=== PATIENT | female | born 1985 | race Caucasian/White ===

== ENCOUNTER 2019-06-10 05:00 | Emergency (ER) | payer SELFPAY ==
[~2019-06-10] VITALS: Ht 170.1 cm; Wt 63.0 kg
[2019-06-10] MEDS ORDERED: methylPREDNISolone 125 MG (Solu-MEDROL) VIAL IV STA (05:07)
[2019-06-10] MEDS ORDERED: RT-ALBUTEROL/IPRATROPIUM 3 ML (DUONEB) VIAL INH ONE ×2 (05:15→05:30)
--- NOTE | 2019-06-10 05:15 | ED Respiratory ---
General Stated Complaint: ASTHMA ATTACK Source: patient Exam Limitations: no limitations History of Present Illness Date Seen by Provider: Jun 10, 2019 Time Seen by Provider: 04:51 Initial Comments Patient presents ER by private conveyance from home with chief complaint that for the past 1 day she's been having severe worsening shortness of breath you are not rest. She's had an occasional dry cough. She denies flank production or fever. She's had no sick contacts. She recently moved about a month ago from [place], [place]. She's been having problems with her allergies and has a history of asthma for which she is on Singulair, a daily inhaled steroid and an MDI albuterol as well as nebulized albuterol. She has been using her nebulized albuterol for the past day about every 1-2 hours with decreasing improvement in her symptoms. She has an appointment to establish care at [facility] but has been bumped several times because of the recent illness and the community. She has ran out of her albuterol MDI and is about out of her nebulizer. She is out of her Singulair as well as her daily controller medication. She is also out of her lisinopril. Allergies and Home Medications Allergies Coded Allergies: No Known Drug Allergies (Unverified , 06/10/19) Patient Home Medication List Home Medication List Reviewed: Yes Review of Systems Review of Systems Constitutional: No chills, No diaphoresis, No fever, No malaise EENTM: No ear discharge, No ear pain Respiratory: cough; No phlegm; short of breath, wheezing Cardiovascular: No chest pain, No edema, No palpitations Gastrointestinal: No abdominal pain, No constipation, No diarrhea, No jaundice Genitourinary: No decreased output, No discharge Musculoskeletal: No back pain, No joint pain All Other Systems Reviewed Negative Unless Noted: Yes Past Mkqcods-Szpzvl-Pagiju Hx Patient Social History Alcohol Use: Denies Use Recreational Drug Use: No Smoking Status: Never a Smoker Physical Exam Vital Signs - First Documented 06/10/19 06/10/19 05:00 05:16 Temp 36.7 Pulse 98 Resp 20 B/P (MAP) 110/88 (95) Pulse Ox 98 O2 Delivery Room Air Capillary Refill : Height: '" Weight: lbs. oz. kg; BMI Method: General Appearance: WD/WN, moderate distress Eyes: Bilateral Eye Normal Inspection, Bilateral Eye PERRL, Bilateral Eye EOMI HEENT: PERRL/EOMI, normal ENT inspection, pharynx normal Neck: full range of motion, normal inspection Respiratory: respiratory distress (nqvc-xq-falpmopq, tachycardia or 105 and tachypneic 25-30), decreased breath sounds, accessory muscle use (mild), wheezing Cardiovascular: normal peripheral pulses, regular rate, rhythm Gastrointestinal: normal bowel sounds, non tender Neurologic/Psychiatric: alert, normal mood/affect, oriented x 3 Skin: normal color, warm/dry Progress/Results/Core Measures Suspected Sepsis SIRS Temperature: Pulse: Respiratory Rate: Laboratory Tests 06/10/19 05:13: White Blood Count 7.3 Blood Pressure / Mean: Laboratory Tests 06/10/19 05:13: Creatinine 0.90, Platelet Count 265, Total Bilirubin 0.4 Results/Orders Lab Results Laboratory Tests Test 06/10/19 05:13 06/10/19 05:20 Range/Units White Blood Count 7.3 4.3-11.0 10^3/uL Red Blood Count 4.78 4.35-5.85 10^6/uL Hemoglobin 14.2 11.5-16.0 G/DL Hematocrit 43 35-52 % Mean Corpuscular Volume 89 80-99 FL Mean Corpuscular Hemoglobin 30 25-34 PG Mean Corpuscular Hemoglobin Concent 33 32-36 G/DL Red Cell Distribution Width 12.8 10.0-14.5 % Platelet Count 265 130-400 10^3/uL Mean Platelet Volume 9.2 7.4-10.4 FL Neutrophils (%) (Auto) 55 42-75 % Lymphocytes (%) (Auto) 33 12-44 % Monocytes (%) (Auto) 7 0-12 % Eosinophils (%) (Auto) 5 0-10 % Basophils (%) (Auto) 0 0-10 % Neutrophils # (Auto) 4.0 1.8-7.8 X 10^3 Lymphocytes # (Auto) 2.4 1.0-4.0 X 10^3 Monocytes # (Auto) 0.5 0.0-1.0 X 10^3 Eosinophils # (Auto) 0.4 H 0.0-0.3 10^3/uL Basophils # (Auto) 0.0 0.0-0.1 10^3/uL Sodium Level 140 135-145 MMOL/L Potassium Level 3.9 3.6-5.0 MMOL/L Chloride Level 111 H 98-107 MMOL/L Carbon Dioxide Level 18 L 21-32 MMOL/L Anion Gap 11 5-14 MMOL/L Blood Urea Nitrogen 12 7-18 MG/DL Creatinine 0.90 0.60-1.30 MG/DL Estimat Glomerular Filtration Rate > 60 BUN/Creatinine Ratio 13 Glucose Level 107 H 70-105 MG/DL Calcium Level 9.1 8.5-10.1 MG/DL Corrected Calcium 8.5-10.1 MG/DL Total Bilirubin 0.4 0.1-1.0 MG/DL Aspartate Amino Transf (AST/SGOT) 15 5-34 U/L Alanine Aminotransferase (ALT/SGPT) 17 0-55 U/L Alkaline Phosphatase 37 L 40-136 U/L C-Reactive Protein High Sensitivity 0.02 0.00-0.50 MG/DL Total Protein 7.3 6.4-8.2 GM/DL Albumin 4.6 H 3.2-4.5 GM/DL Blood Gas Puncture Site RR Blood Gas Patient Temperature 36.8 Arterial Blood pH 7.37 7.37-7.43 Arterial Blood Partial Pressure CO2 36 35-45 MMHG Arterial Blood Partial Pressure O2 73 L 79-93 MMHG Arterial Blood HCO3 20 L 23-27 MMOL/L Arterial Blood Total CO2 21.3 21.0-31.0 MMOL/L Arterial Blood Oxygen Saturation 95 94-100 % Arterial Blood Base Excess -4.3 L -2.5-2.5 MMOL/L Aashish Test YES-POS Blood Gas Ventilator Setting NO Blood Gas Inspired Oxygen RA My Orders Orders - BEHZAD SORIANO Albuterol/Ipra Inhalation Soln (Duoneb I (06/10/19 05:15) Methylprednisolone Sod Succ (Solu-Medrol (06/10/19 05:07) Chest 1 View, Ap/Pa Only (06/10/19 05:07) Svn Small Volume Nebulizer (06/10/19 05:07) Cbc With Automated Diff (06/10/19 05:07) Comprehensive Metabolic Panel (06/10/19 05:07) Hs C Reactive Protein (06/10/19 05:07) Arterial Blood Gas (06/10/19 05:07) Albuterol Pre-Mix Nebs (Rt) (Proventil (06/10/19 05:22) Albuterol/Ipra Inhalation Soln (Duoneb I (06/10/19 05:30) Albuterol Pre-Mix Nebs (Rt) (Proventil (06/10/19 05:19) Ed Iv/Invasive Line Start (06/10/19 05:46) Medications Given in ED Current Medications Medications Dose Ordered Sig/Tariq Route Start Time Stop Time Status Last Admin Dose Admin Albuterol/ Ipratropium 3 ml ONCE ONCE INH 06/10/19 05:15 06/10/19 05:16 DC 06/10/19 05:19 3 ML Albuterol/ Ipratropium 3 ml ONCE ONCE INH 06/10/19 05:30 06/10/19 05:31 DC 06/10/19 05:26 3 ML Vital Signs/I&O 06/10/19 06/10/19 06/10/19 05:00 05:16 05:29 Temp 36.7 Pulse 98 Resp 20 B/P (MAP) 110/88 (95) Pulse Ox 98 96 99 O2 Delivery Room Air Capillary Refill : Progress Note #1: Time: 05:13 Progress Note Patient's previously controlled asthma is no longer control now that she is off of her inhaled corticosteroids, Singulair. We will start with a DuoNeb and do some basic labs and chest x-ray looking for signs of pneumonia. She doesn't have any fever. If she doesn't improve then try an hour-long. We'll give her Solu- Medrol. Her tachycardia may be partially explained by the albuterol that she took within 30 minutes prior to arrival. ABG Progress Note #2: Time: 06:01 Progress Note Patient had significant improvement although still having some wheezing and tightness respiration so we will give her 7.5 mg albuterol and a DuoNeb in addition to the Solu-Medrol. Progress Note #3: Time: 06:11 Progress Note On reexamination the patient's wheezing is gone her breathing is better and she notes objective improvement of symptoms. Vital signs are still normal with a heart rate around the 100 likely due to the albuterol. Diagnostic Imaging Diagonstic Imaging: Xray Plain Films/CT/US/NM/MRI: chest Comments No acute cardiopulmonary processes noted on one view chest x-ray. Reviewed: Reviewed by Me Departure Impression Primary Impression: Asthma exacerbation Qualified Codes: J45.901 - Unspecified asthma with (acute) exacerbation Disposition: 01 HOME, SELF-CARE Condition: Improved Departure-Patient Inst. Decision time for Depature: 06:10 Referrals: UNKNOWN (PCP/Family) Primary Care Physician Patient Instructions: Asthma, Adult (DC) Add. Discharge Instructions: Continue to work on establishing care with your primary care doctor. 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 Return to the ER for having difficulty breathing. Prednisone 3 tablets daily for 3 days. Prednisone 2 tablets daily for 3 days. Prednisone one tablet daily for 3 days. Scripts Budesonide/Formoterol Fumarate (Symbicort 160-4.5 Mcg Inhaler) 10.2 Gm Hfa.aer.ad 2 PUFF IH BID for 30 Days, #1 INHALER 0 Refills Prov: BEHZAD SORIANO 06/10/19 Lisinopril (Lisinopril) 5 Mg Tablet 5 MG PO DAILY for 14 Days, #14 TAB 0 Refills Prov: BEHZAD SORIANO 06/10/19 Albuterol Sulfate (Albuterol Sulfate) 2.5 Mg/3 Ml Vial.neb 2.5 MG INH Q4H PRN for WHEEZING, #50 EA 1 Refill Prov: BEHZAD SORIANO 06/10/19 Albuterol Sulfate (PROAIR HFA) 1 Puff Puff 2 PUFF IH Q4H PRN for WHEEZING, #1 EA 0 Refills 1 PUFF = 90 MCG Prov: BEHZAD SORIANO 06/10/19 Prednisone (Prednisone) 20 Mg Tab 60 MG PO DAILY for 9 Days, #18 TAB 0 Refills Take 3 tabs(60mg)daily, decrease by 1/2 tab(10mg)daily. Prov: BEHZAD SORIANO 06/10/19 BEHZAD SORIANO Jun 10, 2019 05:14
[2019-06-10 05:18] LABS: BASOPHILS % (AUTO) 0 % (0-10); EOSINOPHILS # (AUTO) 0.4 10^3/uL (0.0-0.3); EOSINOPHILS % (AUTO) 5 % (0-10); HEMATOCRIT 43 % (35-52); HEMOGLOBIN 14.2 G/DL (11.5-16.0); LYMPHOCYTES # (AUTO) 2.4 X 10^3 (1.0-4.0); LYMPHOCYTES % (AUTO) 33 % (12-44); MEAN CORPUSCULAR HEMOGLOBIN 30 PG (25-34); MEAN CORPUSCULAR HGB CONC 33 G/DL (32-36); MEAN CORPUSCULAR VOLUME 89 FL (80-99); MEAN PLATELET VOLUME 9.2 FL (7.4-10.4); MONOCYTES # (AUTO) 0.5 X 10^3 (0.0-1.0); MONOCYTES % (AUTO) 7 % (0-12); NEUTROPHILS % (AUTO) 55 % (42-75); PLATELET COUNT 265 10^3/uL (130-400); RED CELL DISTRIBUTION WIDTH 12.8 % (10.0-14.5); WHITE BLOOD COUNT 7.3 10^3/uL (4.3-11.0)
[2019-06-10] MEDS ORDERED: RT-ALBUTEROL SULF 2.5 MG/3 ML PRE-MIX VIAL ONE (05:19)
--- NOTE | 2019-06-10 05:20 | NUR ---
ABG DONE BY RESPIRATORY THERAPY STAFF
[2019-06-10] MEDS ORDERED: RT-ALBUTEROL SULF 2.5 MG/3 ML PRE-MIX VIAL INH STA (05:22)
[2019-06-10 05:30] LABS: ABG BASE EXCESS -4.3 MMOL/L (-2.5-2.5); ABG OXYGEN SATURATION 95 % (94-100); ABG PCO2 36 MMHG (35-45); ABG PH 7.37 (7.37-7.43); ABG PO2 73 MMHG (79-93); ABG TCO2 21.3 MMOL/L (21.0-31.0); ALLENS TEST YES-POS; INSPIRED O2 RA; PATIENT TEMP 36.8; VENTILATOR NO
[2019-06-10 05:49] LABS: ALANINE AMINOTRANSFERASE 17 U/L (0-55); ALBUMIN 4.6 GM/DL (3.2-4.5); ALKALINE PHOSPHATASE 37 U/L (40-136); BILIRUBIN,TOTAL 0.4 MG/DL (0.1-1.0); BUN/CREATININE RATIO 13; CALCIUM 9.1 MG/DL (8.5-10.1); CARBON DIOXIDE 18 MMOL/L (21-32); CHLORIDE 111 MMOL/L (98-107); GFR ESTIMATED > 60; GLUCOSE 107 MG/DL (70-105); POTASSIUM 3.9 MMOL/L (3.6-5.0); SODIUM 140 MMOL/L (135-145); TOTAL PROTEIN 7.3 GM/DL (6.4-8.2)
[2019-06-10] MEDS ORDERED: ALBU2.5V4 INH (06:08)
[2019-06-10] MEDS ORDERED: LISI-556 PO (06:08)
[2019-06-10] MEDS ORDERED: BUDE10.2 IH (06:08)
[2019-06-10] MEDS ORDERED: PRD20T PO (06:08)
[2019-06-10] MEDS ORDERED: RT-ALBUINH IH (06:08)
[2019-06-10 06:20] VITALS: BP 122/79
--- NOTE | 2019-06-10 06:20 | Diagnostic Imaging Report ---
CHEST 1 VIEW, AP/PA ONLY Indication: Chest pain. Comparison: None available. Findings: No focal airspace disease in the visualized lungs. Please note that the posterior lower lobes are poorly evaluated by portable radiography. No pleural effusion or pneumothorax. Normal cardiomediastinal silhouette. Impression: 1. No acute cardiopulmonary process by portable radiography. Dictated by: Dictated on workstation # [id number]
== END 2019-06-10 06:20 | disposition home or self-care (01) ==
LOC: ER 05:05
DX: J45.901 Unspecified asthma with (acute) exacerbation (principal)
CPT/HCPCS: 36415; 71045; 80053; 82805; 85025; 86141; 94640

== ENCOUNTER 2019-06-22 19:58 | Emergency (ER) | payer SELFPAY ==
[~2019-06-22] VITALS: Ht 170.2 cm; Wt 63.5 kg
[~2019-06-22 19:58] MED LIST: ALBU2.5V4 INH; BUDE10.2 IH; LISI-556 PO; PRD20T PO; RT-ALBUINH IH
--- OUTSIDE RECORDS SUMMARY | 2019-06-22 20:04 | XMS REPORT | Continuity of Care Document ---
Author Organization Unknown Address Unknown Phone Unavailable Allergies Active Description Code Type Severity Reaction Onset Reported/Identified Relationship to Patient Clinical Status Yes No Known Drug Allergies [id number] Drug Allergy Unknown N/A 06/10/2019 Medications There is no data. Problems Date Dx Coded Attending Type Code Diagnosis Diagnosed By 06/11/2019 BO SANTOS, BEHZAD [place] Ot J45.901 UNSPECIFIED ASTHMA WITH (ACUTE) EXACERBA Procedures There is no data. Results Test Result Range Complete blood count (CBC) with automate d white blood cell (WBC) differential - 06/10/19 05:13 Blood leukocytes automated count (number/volume) 7.3 10*3/uL 4.3-11.0 Blood erythrocytes automated count (number/volume) 4.78 10*6/uL 4.35-5.85 Venous blood hemoglobin measurement (mass/volume) 14.2 g/dL 11.5-16.0 Blood hematocrit (volume fraction) 43 % 35-52 Automated erythrocyte mean corpuscular volume 89 [ foz_us] 80-99 Automated erythrocyte mean corpuscular h emoglobin (mass per erythrocyte) 30 pg 25-34 Automated erythrocyte mean corpuscular h emoglobin concentration measurement (mass/volume) 33 g/dL 32-36 Automated erythrocyte distribution width ratio 12. 8 % 10.0- 14.5 Automated blood platelet count (count/volume) 265 10*3/uL 130-400 Automated blood platelet mean volume measurement 9.2 [foz_us] 7.4-10.4 Automated blood neutrophils/100 leukocytes 55 % 42-75 Automated blood lymphocytes/100 leukocytes 33 % 12-44 Blood monocytes/100 leukocytes 7 % 0-12 Automated blood eosinophils/100 leukocytes 5 % 0-10 Automated blood basophils/100 leukocytes 0 % 0-10 Blood neutrophils automated count (number/volume) 4.0 10*3 1.8-7.8 Blood lymphocytes automated count (number/volume) 2.4 10*3 1.0-4.0 Blood monocytes automated count (number/volume) 0. 5 10*3 0.0-1.0 Automated eosinophil count 0.4 10*3/uL 0 .0-0.3 Automated blood basophil count (count/volume) 0.0 10*3/uL 0.0-0.1 Comprehensive metabolic panel - 06/10/19 05:13 Serum or plasma sodium measurement (moles/volume) 140 mmol/L 135-145 Serum or plasma potassium measurement (moles/volume) 3.9 mmol/L 3.6-5.0 Serum or plasma chloride measurement (moles/volume) 111 mmol/L 98-107 Carbon dioxide 18 mmol/L 21-32 Serum or plasma anion gap determination (moles/volume) 11 mmol/L 5-14 Serum or plasma urea nitrogen measurement (mass/volume ) 12 mg/dL 7-18 Serum or plasma creatinine measurement (mass/volume) 0.90 mg/dL 0.60-1.30 Serum or plasma urea nitrogen/creatinine mass ratio 13 NRG Serum or plasma creatinine measurement w ith calculation of estimated glomerular filtration rate > NRG Serum or plasma glucose measurement (mass/volume) 107 mg/dL 70-105 Serum or plasma calcium measurement (mass/volume) 9.1 mg/dL 8.5-10.1 Serum or plasma total bilirubin measurement (mass/volu me) 0.4 mg/dL 0.1-1.0 Serum or plasma alkaline phosphatase carey surement (enzymatic activity/volume) 37 U/L 40-136 Serum or plasma aspartate aminotransfera se measurement (enzymatic activity/volume) 15 U/L 5-34 Serum or plasma alanine aminotransferase measurement (enzymatic activity/volume) 17 U/L 0-55 Serum or plasma protein measurement (mass/volume) 7.3 g/dL 6.4-8.2 Serum or plasma albumin measurement (mass/volume) 4.6 g/dL 3.2-4.5 Serum or plasma C reactive protein measu rement (mass/volume) - 06/10/19 05:13 Serum or plasma C reactive protein measurement (mass/v olume) 0.02 mg/dL 0.00-0.50 Arterial blood gas measurement - 0 05:20 Blood pCO2 36 mm[Hg] 35-45 Blood pO2 73 mm[Hg] 79-93 Arterial blood bicarbonate measurement (moles/volume) 20 mmol/L 23-27 Arterial blood base excess by calculation -4.3 mmo l/L -2.5-2.5 Arterial blood oxygen saturation measurement 95 % 94-100 * Inhaled oxygen flow rate RA NRG Arterial blood pH measurement with patient temperature correction 7.37 7.37-7.43 Arterial blood carbon dioxide, total measurement (mole s/volume) 21.3 mmol/L 21.0-31.0 Body site RR NRG Assessment of wrist artery patency prior to arterial p uncture YES-POS NRG Setting of ventilation mode NO NR G Measurement of body temperature 36.8 NRG Encounters ACCT No. Visit Date/Time Discharge Status Pt. Type Provider Facility Loc./Unit Complaint [id number] 06/10/2019 05:05:00 020 06:20:00 DIS Outpatient BO SANTOS, BEHZAD [facility] ER ASTHMA ATTACK
[2019-06-22] MEDS ORDERED: LACTATED RINGERS 1,000 ML IV ONE (20:25)
[2019-06-22] MEDS ORDERED: MAGNESIUM 1 GM/100 ML IVPB 100 ML IV ONE (20:30)
[2019-06-22] MEDS ORDERED: methylPREDNISolone 125 MG (Solu-MEDROL) VIAL IVP ONE (20:30)
[2019-06-22] MEDS ORDERED: RT-IPRATROPIUM (ATROVENT) 0.5MG/2.5ML AMP IH ONE (20:45)
[2019-06-22 21:35] LABS: BASOPHILS % (AUTO) 0 % (0-10); EOSINOPHILS # (AUTO) 0.7 10^3/uL (0.0-0.3); EOSINOPHILS % (AUTO) 6 % (0-10); HEMATOCRIT 46 % (35-52); HEMOGLOBIN 15.4 G/DL (11.5-16.0); LYMPHOCYTES # (AUTO) 2.4 X 10^3 (1.0-4.0); LYMPHOCYTES % (AUTO) 20 % (12-44); MEAN CORPUSCULAR HEMOGLOBIN 30 PG (25-34); MEAN CORPUSCULAR HGB CONC 34 G/DL (32-36); MEAN CORPUSCULAR VOLUME 90 FL (80-99); MEAN PLATELET VOLUME 9.1 FL (7.4-10.4); MONOCYTES # (AUTO) 0.8 X 10^3 (0.0-1.0); MONOCYTES % (AUTO) 7 % (0-12); NEUTROPHILS # (AUTO) 7.8 X 10^3 (1.8-7.8); NEUTROPHILS % (AUTO) 67 % (42-75); PLATELET COUNT 288 10^3/uL (130-400); WHITE BLOOD COUNT 11.6 10^3/uL (4.3-11.0)
[2019-06-22 21:42] LABS: ALBUMIN 4.5 GM/DL (3.2-4.5); CHLORIDE 107 MMOL/L (98-107); POTASSIUM 3.5 MMOL/L (3.6-5.0); SODIUM 142 MMOL/L (135-145)
[2019-06-22 21:44] LABS: CALCIUM 9.5 MG/DL (8.5-10.1)
[2019-06-22 21:45] LABS: GLUCOSE 96 MG/DL (70-105); TOTAL PROTEIN 7.5 GM/DL (6.4-8.2)
[2019-06-22 21:46] LABS: CARBON DIOXIDE 22 MMOL/L (21-32)
[2019-06-22 21:47] LABS: BILIRUBIN,TOTAL 0.3 MG/DL (0.1-1.0)
[2019-06-22 21:48] LABS: ALKALINE PHOSPHATASE 45 U/L (40-136)
[2019-06-22 21:49] LABS: CREATININE SERUM 0.77 MG/DL (0.60-1.30); GFR ESTIMATED > 60
[2019-06-22 21:50] LABS: BUN/CREATININE RATIO 13
[2019-06-22 21:51] LABS: ALANINE AMINOTRANSFERASE 17 U/L (0-55)
[2019-06-22] MEDS ORDERED: PRD20T PO (22:57)
--- NOTE | 2019-06-22 22:57 | ED Respiratory ---
General Chief Complaint: Respiratory Problems Stated Complaint: ASTHMA ATTACK-FAILED ALBUTEROL TX Nursing Triage Note: Pt amb to room #9 with c/o SOA. Pt reports on 06/21/19 SOA began with increase in severity throughout this day. 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 Pt reports hx asthma. Initial SPO2 98% via RA. Pt reports dry cough associated with SOA, but denies fever or chills. X3 young child at side. This RN advised pt of risks of bringing in children et pt reports she has no where for children to go. PPE donned during triage. A&OX4. Source: patient Exam Limitations: no limitations History of Present Illness Date Seen by Provider: Jun 22, 2019 Time Seen by Provider: 20:15 Initial Comments This 33-year-old young lady presents to the emergency room with complaints of wheezing and shortness of breath consistent with asthma exacerbation. She has required steroids in the past for asthma exacerbations. She denies any fever. Cough has been dry. Symptoms started yesterday and have progressively worsened. She took 6 albuterol nebulized treatments today without improvement. She recently moved from [place] where there have been no significant numbers of COVID patients. She denies any exposure to ill persons or persons known to have COVID or under investigation for COVID. She does not smoke. She denies . She hasn't appointment to establish care with a local provider tomorrow. Allergies and Home Medications Allergies Coded Allergies: No Known Drug Allergies (Unverified , 06/10/19) Home Medications Albuterol Sulfate 1 Puff Puff, 2 PUFF IH Q4H PRN for WHEEZING 1 PUFF = 90 MCG Prescribed by: BEHZAD SORIANO on 06/10/19 0608 Albuterol Sulfate 2.5 Mg/3 Ml Vial.neb, 2.5 MG INH Q4H PRN for WHEEZING Prescribed by: BEHZAD SORIANO on 06/10/19 0608 Budesonide/Formoterol Fumarate 10.2 Gm Hfa.aer.ad, 2 PUFF IH BID Prescribed by: BEHZAD SORIANO on 06/10/19 0608 Lisinopril 5 Mg Tablet, 5 MG PO DAILY Prescribed by: BEHZAD SORIANO on 06/10/19 0608 Prednisone 20 Mg Tab, 60 MG PO DAILY Take 3 tabs(60mg)daily, decrease by 1/2 tab(10mg)daily. Prescribed by: BEHZAD SORIANO on 06/10/19 0608 Prednisone 20 Mg Tab, 40 MG PO DAILY Prescribed by: ROSIBEL HARLEY on 06/22/19 6791 Patient Home Medication List Home Medication List Reviewed: Yes Review of Systems Review of Systems Constitutional: no symptoms reported EENTM: no symptoms reported Respiratory: see HPI Cardiovascular: no symptoms reported Gastrointestinal: no symptoms reported Genitourinary: no symptoms reported : No Musculoskeletal: no symptoms reported Skin: no symptoms reported Psychiatric/Neurological: No Symptoms Reported Hematologic/Lymphatic: No Symptoms Reported Immunological/Allergic: no symptoms reported Past Deqwfgr-Vcetzb-Otdduw Hx Past Med/Social Hx: Reviewed Nursing Past Med/Soc Hx Patient Social History Alcohol Use: Denies Use Recreational Drug Use: No Smoking Status: Former Smoker Type Used: Cigarettes Recent Foreign Travel: No Contact w/Someone Who Travel: No Recent Infectious Disease Expo: No Recent Hopitalizations: No Immunizations Up To Date Tetanus Booster (TDap): Unknown Seasonal Allergies Seasonal Allergies: Yes Past Medical History Surgeries: Yes Tubal Ligation Respiratory: Yes Asthma Currently Using CPAP: No Currently Using BIPAP: No Cardiac: Yes Hypertension Neurological: No : 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 oz. 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, no motor/sensory deficits, alert, normal mood/affect, oriented x 3 Skin: normal color, warm/dry Progress/Results/Core Measures Suspected Sepsis Recent Fever Within 48 Hours: No Infection Criteria Present: Suspected New Infection New/Unexplained Altered Menta: No Sepsis Screen: Possible Severe Sepsis Risk SIRS Temperature: Pulse: 104 Respiratory Rate: 24 Laboratory Tests 06/22/19 20:15: White Blood Count 11.6H Blood Pressure 128 /101 Mean: 110 Laboratory Tests 06/22/19 20:15: Creatinine 0.77, Platelet Count 288, Total Bilirubin 0.3 Results/Orders Lab Results Laboratory Tests Test 06/22/19 20:15 Range/Units White Blood Count 11.6 H 4.3-11.0 10^3/uL Red Blood Count 5.06 4.35-5.85 10^6/uL Hemoglobin 15.4 11.5-16.0 G/DL Hematocrit 46 35-52 % Mean Corpuscular Volume 90 80-99 FL Mean Corpuscular Hemoglobin 30 25-34 PG Mean Corpuscular Hemoglobin Concent 34 32-36 G/DL Red Cell Distribution Width 13.0 10.0-14.5 % Platelet Count 288 130-400 10^3/uL Mean Platelet Volume 9.1 7.4-10.4 FL Neutrophils (%) (Auto) 67 42-75 % Lymphocytes (%) (Auto) 20 12-44 % Monocytes (%) (Auto) 7 0-12 % Eosinophils (%) (Auto) 6 0-10 % Basophils (%) (Auto) 0 0-10 % Neutrophils # (Auto) 7.8 1.8-7.8 X 10^3 Lymphocytes # (Auto) 2.4 1.0-4.0 X 10^3 Monocytes # (Auto) 0.8 0.0-1.0 X 10^3 Eosinophils # (Auto) 0.7 H 0.0-0.3 10^3/uL Basophils # (Auto) 0.0 0.0-0.1 10^3/uL Sodium Level 142 135-145 MMOL/L Potassium Level 3.5 L 3.6-5.0 MMOL/L Chloride Level 107 98-107 MMOL/L Carbon Dioxide Level 22 21-32 MMOL/L Anion Gap 13 5-14 MMOL/L Blood Urea Nitrogen 10 7-18 MG/DL Creatinine 0.77 0.60-1.30 MG/DL Estimat Glomerular Filtration Rate > 60 BUN/Creatinine Ratio 13 Glucose Level 96 70-105 MG/DL Calcium Level 9.5 8.5-10.1 MG/DL Corrected Calcium 9.1 8.5-10.1 MG/DL Total Bilirubin 0.3 0.1-1.0 MG/DL Aspartate Amino Transf (AST/SGOT) 15 5-34 U/L Alanine Aminotransferase (ALT/SGPT) 17 0-55 U/L Alkaline Phosphatase 45 40-136 U/L C-Reactive Protein High Sensitivity 0.04 0.00-0.50 MG/DL Total Protein 7.5 6.4-8.2 GM/DL Albumin 4.5 3.2-4.5 GM/DL My Orders Orders - ROSIBEL SMITH MD Cbc With Automated Diff (06/22/19 20:25) Comprehensive Metabolic Panel (06/22/19 20:25) Hs C Reactive Protein (06/22/19 20:25) Ed Iv/Invasive Line Start (06/22/19 20:25) Lactated Ringers (Lr 1000 Ml Iv Solution (06/22/19 20:25) Magnesium 1 Gm/100 Ml Ivpb (Magnesium Dickinson (06/22/19 20:30) Methylprednisolone Sod Succ (Solu-Medrol (06/22/19 20:30) Ipratropium 0.02% Neb Solution (Atrovent (06/22/19 20:45) Svn Small Volume Nebulizer (06/22/19 20:34) Medications Given in ED Current Medications Medications Dose Ordered Sig/Tariq Route Start Time Stop Time Status Last Admin Dose Admin Ipratropium [place] 0.5 mg ONCE ONCE IH 06/22/19 20:45 06/22/19 20:46 DC 06/22/19 20:41 0.5 MG Lactated Ringer's 1,000 ml @ 0 mls/hr Q0M ONCE IV 06/22/19 20:25 06/22/19 20:27 DC 06/22/19 21:27 0 MLS/HR Magnesium Sulfate/ Dextrose 100 ml @ 100 mls/hr ONCE ONCE IV 06/22/19 20:30 06/22/19 21:29 DC 06/22/19 21:27 100 MLS/HR Methylprednisolone Sodium Succinate 125 mg ONCE ONCE IVP 06/22/19 20:30 06/22/19 20:31 DC 06/22/19 21:27 125 MG Vital Signs/I&O 06/22/19 06/22/19 06/22/19 20:08 20:42 23:05 Temp 36.1 36.4 Pulse 104 60 Resp 24 17 B/P (MAP) 128/101 (110) 148/69 (110) Pulse Ox 98 95 98 O2 Delivery Room Air Room Air Room Air 06/23/19 00:00 Intake Total 1100 ml Balance 1100 ml Capillary Refill : Less Than 3 Seconds Blood Pressure Mean: 110 Progress Note : Progress Note Patient had fairly tight wheezing throughout. Vital signs were stable and she was not hypoxic. Since she had taken multiple nebulized albuterol treatments this evening, no further albuterol was administered. She was given a nebulized treatment of ipratropium. Chest received a liter of IV fluid, Solu-Medrol 125 mg IV, and a gram of magnesium by IV route. This improved her symptoms significantly and she was dismissed home. Departure Impression Primary Impression: Asthma exacerbation Qualified Codes: J45.901 - Unspecified asthma with (acute) exacerbation Disposition: HOME, SELF-CARE Condition: Improved Admissions Decision to Admit Reason: Admit from ER (General) Departure-Patient Inst. Decision time for Depature: 22:56 Referrals: NO,LOCAL PHYSICIAN (PCP/Family) Primary Care Physician Patient Instructions: Asthma, Adult (DC) Add. Discharge Instructions: Continue your inhaled medications as previously prescribed. Use the prednisone steroids as directed. If you have an allergy component, consider taking allergy medication such as loratadine or cetirizine. Avoid any inhaled irritants such as dust or cigarette smoke. Return to care if you have worsening symptoms despite taking these measures. All discharge instructions reviewed with patient and/or family. Voiced understanding. Scripts Prednisone (Prednisone) 20 Mg Tab 40 MG PO DAILY, #6 TAB Prov: ROSIBEL SMITH MD 06/22/19 ROSIBEL SMITH MD Jun 22, 2019 22:57
[2019-06-22 23:05] VITALS: BP 148/69
== END 2019-06-22 23:05 | disposition home or self-care (01) ==
LOC: EDUNIT# 19:58 → ER 20:00
DX: J45.901 Unspecified asthma with (acute) exacerbation (principal); I10 Essential (primary) hypertension; Z87.891 Personal history of nicotine dependence; Z79.899 Other long term (current) drug therapy
CPT/HCPCS: 36415; 80053; 85025; 86141; 94640